=== PATIENT | female | born 2000 | race Caucasian/White ===

== ENCOUNTER 2018-05-12 02:50 | Emergency (ER) | payer OTHER ==
[~2018-05-12] VITALS: Ht 160 cm; Wt 47.6 kg
[2018-05-12] MEDS ORDERED: AMOXICILLIN-CLAVUL 875-125MG TABLET ONE (03:23)
--- NOTE | 2018-05-12 03:27 | NUR ---
Patient discharged to home in stable conditon. Written and verbal after care instructions given. Patient verbalizes understanding of instructions.
[2018-05-12] MEDS ORDERED: AMOXICILLIN-CLAVUL 875-125MG TABLET PO ONE (03:30)
== END 2018-05-12 03:29 | disposition home or self-care (01) ==
LOC: ER 02:52
DX: S01.452A Open bite of left cheek and temporomandibular area, initial encounter (principal); L08.9 Local infection of the skin and subcutaneous tissue, unspecified; W54.0XXA Bitten by dog, initial encounter; Y93.89 Activity, other specified; Y92.89 Other specified places as the place of occurrence of the external cause; Y99.8 Other external cause status
CPT/HCPCS: A4663